=== PATIENT | female | born 1980 | race Caucasian/White ===

== ENCOUNTER 2017-03-11 00:23 | Emergency (ER) | payer BC, OTHER ==
[~2017-03-11] VITALS: Ht 170.2 cm; Wt 112.5 kg
[~2017-03-11 00:23] MED LIST: CYMBALTA PO; ambien PO
[2017-03-11 00:30] VITALS: BP_SYST 150
[2017-03-11] MEDS ORDERED: NACL 0.9% 1,000 ML IV ONE (00:56)
[2017-03-11] MEDS ORDERED: HYDROmorphone 1 MG INJ. 1 MG/ML AMPUL IVP ONE ×2 (01:00→03:30)
[2017-03-11] MEDS ORDERED: ONDANSETRON HCL 4 MG/2 ML VIAL IVP ONE (01:00)
[2017-03-11 01:23] LABS: BILIRUBIN,URINE NEGATIVE (NEGATIVE); BLOOD, URINE 3+ (NEGATIVE); CLARITY/URINE CLOUDY (CLEAR); COLOR,URINE YELLOW (YELLOW); GLUCOSE,URINE NEGATIVE (NEGATIVE); KETONES,URINE NEGATIVE (NEGATIVE); LEUKOCYTE ESTERASE ,URINE 2+ (NEGATIVE); NITRITE, URINE NEGATIVE (NEGATIVE); PROTEIN URINE TRACE (NEGATIVE); UROBILINOGEN,URINE 0.2 (0.2-1.0)
[2017-03-11 01:26] LABS: BASOPHILS % (AUTO) 0.2 % (0.0-2.0); EOSINOPHILS % (AUTO) 0.3 % (0.0-4.0); HEMATOCRIT 36.5 % (36-48); LYMPHOCYTES # (AUTO) 1.5 K/uL (1.0-5.5); LYMPHOCYTES % (AUTO) 13.5 % (20.5-51.5); MEAN CORPUSCULAR HEMOGLOBIN 25 pg (27-31); MEAN CORPUSCULAR HGB CONC 33 % (32-36); MEAN CORPUSCULAR VOLUME 77 fL (79.0-98.0); MONOCYTES # (AUTO) 0.6 K/uL (0.0-1.0); MONOCYTES % (AUTO) 5.2 % (1.7-9.3); NEUTROPHILS # (AUTO) 8.8 K/uL (1.8-7.7); NEUTROPHILS % (AUTO) 80.8 % (40.0-70.0); PLATELET COUNT (AUTO) 241 K/uL (130-430); RED BLOOD CELL COUNT(AUTO) 4.73 MIL/uL (4.2-6.2); RED CELL DISTRIBUTION WIDTH 15.1 % (9.0-15.0); WHITE BLOOD COUNT (AUTO) 10.9 K/uL (4.8-10.8)
[2017-03-11 01:33] LABS: BACTERIA,URINE MODERATE /HPF (None Seen); MUCUS,URINE None Seen /LPF (None Seen); RBC,URINE >100 /HPF (0-3); WBC,URINE 20-50 /HPF (0-3)
[2017-03-11 01:33] LABS: CALCIUM 8.7 mg/dL (8.4-11.0); CREATININE 1.12 mg/dL (0.55-1.30); POTASSIUM 3.6 mmol/L (3.5-5.1)
[2017-03-11 01:37] LABS: PROTHROMBIN TIME 10.8 SECS (9.5-12.5)
[2017-03-11 01:48] LABS: ALBUMIN 3.6 g/dL (3.4-4.8); TOTAL BILIRUBIN 0.4 mg/dL (0.0-1.0); TOTAL PROTEIN, SERUM 6.9 g/dL (6.4-8.3)
[2017-03-11] MEDS ORDERED: DIPHENHYDRAMINE INJ 50 MG/ML VIAL IVP ONE (02:30)
[2017-03-11 04:08] VITALS: BP_SYST 123
== END 2017-03-11 04:08 | disposition home or self-care (01) ==
LOC: SED 00:23
DX: R10.2 Pelvic and perineal pain (principal); I10 Essential (primary) hypertension; Z90.710 Acquired absence of both cervix and uterus; Z88.0 Allergy status to penicillin; Z91.040 Latex allergy status
CPT/HCPCS: 36415; 71010; 74176; 80053; 81000; 82150; 83605; 83690; 85025; 85610; 85730; 87040; 87086; 87186; 96365; 96375; 96376; 99285; J1170; J1200; J1956; J2405; J7030; 96366

== ENCOUNTER 2020-09-04 05:00 | Emergency (ER) | payer OTHER ==
[~2020-09-04] VITALS: Ht 172.7 cm; Wt 117.9 kg
[2020-09-04 05:05] VITALS: BP_SYST 130
--- NOTE | 2020-09-04 05:10 | NUR ---
Patient to ER bed 7 to gown for evaluation. Side rails up. Report received from SANDIP Cornelius.
--- NOTE | 2020-09-04 05:34 | NUR ---
ER Dr. barron at bedside examining patient.
--- NOTE | 2020-09-04 05:35 | NUR ---
pt a&o x4 from home c/o of lower abdominal pain & burning/pain while urinating since thursday. pt states shes also been nauseous but denies vomiting. pt states she took cipro for past two days out of desperation. pt also taking pyridium. pt rates pain 04/27.
--- NOTE | 2020-09-04 05:42 | NUR ---
Urine HCG done, results negative.
[2020-09-04] MEDS ORDERED: cefTRIAXone 1 GM in LIDOCAINE 1%, 20 ML MDV 2.1 ML IM ONE (05:45)
[2020-09-04 05:57] VITALS: BP_SYST 128
--- NOTE | 2020-09-04 05:57 | NUR ---
Patient given written and verbal discharge instructions and verbalizes understanding. ER MD discussed with patient the results and treatment provided. Patient in stable condition. ID arm band removed. Rx of keflex and ibuprofen given. Patient educated on pain management and to follow up with PMD. Pain Scale 7/10. Opportunity for questions provided and answered. Medication side effect fact sheet provided.
[2020-09-04 06:28] LABS: BILIRUBIN,URINE 1+ (NEGATIVE); BLOOD, URINE NEGATIVE (NEGATIVE); CLARITY/URINE CLEAR (CLEAR); GLUCOSE,URINE 1+ (NEGATIVE); KETONES,URINE NEGATIVE (NEGATIVE); LEUKOCYTE ESTERASE ,URINE NEGATIVE (NEGATIVE); NITRITE, URINE POSITIVE (NEGATIVE); PROTEIN URINE 1+ (NEGATIVE)
[2020-09-04 06:30] LABS: COLOR,URINE ORANGE (YELLOW); UROBILINOGEN,URINE >=8 (0.2-1.0)
[2020-09-04 06:39] LABS: BACTERIA,URINE FEW /HPF (None Seen); WBC,URINE 0-3 /HPF (0-3)
== END 2020-09-04 05:57 | disposition home or self-care (01) ==
LOC: SED 05:00
DX: N39.0 Urinary tract infection, site not specified (principal); M79.18 Myalgia, other site; Z88.0 Allergy status to penicillin; Z91.040 Latex allergy status
CPT/HCPCS: 81000; 81025; 87086; 96372; 99283; J0696; J2001

== ENCOUNTER 2021-12-07 11:19 | Emergency (ER) | payer OTHER ==
[~2021-12-07] VITALS: Ht 170.2 cm; Wt 115.7 kg
--- NOTE | 2021-12-07 11:30 | NUR ---
Patient to ER bed 8 for evaluation. Side rails up. Report given to Zeny OROPEZA.
[2021-12-07 11:35] VITALS: BP_SYST 135
--- NOTE | 2021-12-07 12:00 | NUR ---
INITIAL CONTACT WITH PATIENT. KARL , AMBULATORY BIB FATHER, C/O VOMITING. PT PLACED TO R 4 , AWAITING ED MD TO SEE PATIENT Addendum: 12/07/21 at 1241 by [email or web address] NITIAL CONTACT WITH PATIENT. Yandy/JANUSZ , AMBULATORY, C/O DIAZ AFTER INTERCOURSE PT PLACED TO R 4 , AWAITING ED MD TO SEE PATIENT
--- NOTE | 2021-12-07 12:00 | NUR ---
PT A/OX4 , FROM [facility] , C/O DIAZ
--- NOTE | 2021-12-07 12:42 | NUR ---
PT TAKEN TO CT SCAN , STABLE
--- NOTE | 2021-12-07 13:57 | NUR ---
DR CARO REVIEWD CT RESULT AND CLEARED PT TO BE DC HOME.
--- NOTE | 2021-12-07 13:58 | NUR ---
Patient given written and verbal discharge instructions and verbalizes understanding. ER MD discussed with patient the results and treatment provided. Patient in stable condition. ID arm band removed. Patient educated on pain management and to follow up with PMD. Pain Scale [0]. Opportunity for questions provided and answered. Medication side effect fact sheet provided.
[2021-12-07 13:59] VITALS: BP_SYST 1
== END 2021-12-07 14:01 | disposition home or self-care (01) ==
LOC: SED 11:19
DX: R51.9 Headache, unspecified (principal); Z88.0 Allergy status to penicillin; Z91.040 Latex allergy status
CPT/HCPCS: 70450-TC; 76376; 99284